=== PATIENT | male | born 1965 | race American Indian/Alaskan Native ===

== ENCOUNTER 2017-06-18 18:57 | Emergency (ER) | payer OTHER ==
[2017-06-18 18:57] VITALS: BMI 31.4
[2017-06-18 19:05] VITALS: BP 152/97; PULSE 86; TEMP 98
[2017-06-18] MEDS ORDERED: Lidocaine 5% Patch TD STA (19:17)
--- NOTE | 2017-06-18 19:21 | ED PDOC ---
Arrival/HPI - General Chief Complaint: Upper Extremity Problem/Injury Time Seen by Provider: 06/18/17 19:00 Historian: Patient - History of Present Illness Narrative History of Present Illness (Text): 06/18/17 19:18 52 y/o male, pmh including chronic rt. shoulder and neck pain, nkda, c/o rt. shoulder and neck pain started again earlier this week with no fall or trauma. Pt. stated that he gets this vicki pain around this time of the year, aggravated by rt. shoulder movement and rt. elbow extension against resistance, unable to see the orthopedic this week, no headache or night sweat, no chest pain or shortness of breath, no numbness or tingling. Pt. stated that he always has rt. elbow pain concurrently with the rt. shoulder pain, no chest pain or shortness of breath, no night sweat, no rash, no other medical or psychological complaints. Past Medical History - Provider Review Nursing Documentation Reviewed: Yes - Cardiac Hx Cardiac Disorders: Yes Hx Atrial Fibrillation: Yes (12 years ago) Hx Hypertension: Yes - Pulmonary Hx Respiratory Disorders: No - Neurological Hx Neurological Disorder: No - HEENT Hx HEENT Disorder: No - Renal Hx Renal Disorder: No - Endocrine/Metabolic Hx Endocrine Disorders: Yes Hx Diabetes Mellitus Type 2: Yes - Hematological/Oncological Hx Blood Disorders: No - Integumentary Hx Dermatological Disorder: No - Musculoskeletal/Rheumatological Hx Musculoskeletal Disorders: No Hx Falls: No - Gastrointestinal Hx Gastrointestinal Disorders: Yes Hx Pancreatitis: Yes - Genitourinary/Gynecological Hx Genitourinary Disorders: No - Psychiatric Hx Psychophysiologic Disorder: No Hx Depression: No Hx Emotional Abuse: No Hx Physical Abuse: No Hx Substance Use: No - Surgical History Other/Comment: ENDOSCOPY - Suicidal Assessment Feels Threatened In Home Enviroment: No Family/Social History - Physician Review Nursing Documentation Reviewed: Yes Family/Social History: Unknown Family HX Smoking Status: Current Some Days Smoker Hx Alcohol Use: Yes (occasional) Frequency of alcohol use: Socially Hx Substance Use: No Hx Substance Use Treatment: No Allergies/Home Meds Allergies/Adverse Reactions: Allergies No Known Allergies Allergy (Verified 03/10/12 01:56) Home Medications: Home Meds Medication Instructions Recorded Confirmed amLODIPine [Norvasc] 5 mg PO DAILY 09/13/16 06/18/17 Glimepiride [amaRYL] 2 mg PO DAILY 06/18/17 06/18/17 Review of Systems - Review of Systems Constitutional: absent: Fatigue, Fevers Eyes: absent: Vision Changes ENT: absent: Hearing Changes Respiratory: absent: SOB, Cough Cardiovascular: absent: Chest Pain Gastrointestinal: absent: Abdominal Pain, Nausea, Vomiting Musculoskeletal: Arthralgias, Myalgias Skin: absent: Rash, Pruritis, Skin Lesions Neurological: absent: Headache, Dizziness, Focal Weakness Psychiatric: absent: Anxiety, Depression, Suicidal Ideation Physical Exam Vital Signs Reviewed: Yes Vital Signs Temp Pulse Resp BP Pulse Ox 06/18/17 19:07 98.0 F 86 18 152/97 H 98 06/18/17 19:01 98.0 F 86 16 152/97 H 98 Temperature: Afebrile Blood Pressure: Hypertensive Pulse: Regular Respiratory Rate: Normal Appearance: Positive for: Well-Appearing, Non-Toxic, Comfortable Pain Distress: Moderate Mental Status: Positive for: Alert and Oriented X 3 - Systems Exam Head: Present: Atraumatic, Normocephalic Pupils: Present: PERRL Extroacular Muscles: Present: EOMI Conjunctiva: Present: Normal Mouth: Present: Moist Mucous Membranes Neck: Present: Normal Range of Motion, Paraspinal Tenderness (mild rt. paraspinal and rt. trapezius muscle tenderness with mild spasm. ). No: Meningeal Signs, MIDLINE TENDERNESS Respiratory/Chest: Present: Clear to Auscultation, Good Air Exchange. No: Respiratory Distress, Accessory Muscle Use, Wheezes, Decreased Breath Sounds, Rales, Retracting, Rhonchi Cardiovascular: Present: Regular Rate and Rhythm, Normal S1, S2. No: Murmurs Abdomen: Present: Normal Bowel Sounds. No: Tenderness, Distention, Peritoneal Signs, Rebound, Guarding Back: Present: Normal Inspection. No: CVA Tenderness, Midline Tenderness, Paraspinal Tenderness, Pain with Leg Raise, Decubitus Ulcer Upper Extremity: Present: Normal Inspection, Other (Rt. shoulder and UE: +ttp on the rt. lateral epicondyle with pain upon rt. elbow extension against resistance, +ttp on the rt. trapezius/supraspinal muscle region, FROM without limitation, sensation intact, motor 5/5, +radial pulse, capillary refill< 2 seconds, neurovascular intact. ). No: Cyanosis, Edema Lower Extremity: Present: Normal Inspection. No: Edema Neurological: Present: GCS=15, CN II-XII Intact, Speech Normal Skin: Present: Warm, Dry, Normal Color. No: Rashes Psychiatric: Present: Alert, Oriented x 3, Normal Insight, Normal Concentration Medical Decision Making ED Course and Treatment: 06/18/17 19:28 -There is no emergent indication of radiology studies indicated at this time. However, I advised the patient to follow up with his own orthopedic and pmd within 2 days for MRI of the rt. shoulder and cervical spine. -Pt. is driving home so I will give him toradol IM and lidoderm patch. -Discharge home with lidoderm patch, naproxen, flexeril, heat compression, follow up with your own pmd and orthopedic plus physical therapist within 2 days along with MRI of the rt. shoulder/cervical spine, return to the ER for any new or worsening signs or symptoms. - PA / TIME SIGNAL WIRER / Resident Statement / has reviewed & agrees with the documentation as recorded. Disposition/Present on Arrival - Present on Arrival Any Indicators Present on Arrival: No History of DVT/PE: No History of Uncontrolled Diabetes: Yes Urinary Catheter: No History of Decub. Ulcer: No History Surgical Site Infection Following: None - Disposition Have Diagnosis and Disposition been Completed?: Yes Diagnosis: Tennis elbow, Trapezius muscle strain, Shoulder pain Disposition: HOME/ ROUTINE Disposition Time: 19:30 Patient Plan: Discharge Condition: GOOD Additional Instructions: -Discharge home with lidoderm patch, naproxen, flexeril, heat compression, follow up with your own pmd and orthopedic plus physical therapist within 2 days along with MRI of the rt. shoulder/cervical spine, return to the ER for any new or worsening signs or symptoms. Prescriptions: Cyclobenzaprine [Cyclobenzaprine HCl] 10 mg PO TID PRN #21 tab PRN Reason: Other Lidocaine 5% [Lidoderm] 1 patch TP DAILY PRN #14 patch PRN Reason: Other Naproxen 500 mg PO BID PRN #24 tab PRN Reason: Other Referrals: Jorge Arriaga III, MD [Medical Doctor] - Follow up with primary [facility] [Outside] - Follow up with primary Forms: WORK NOTE
[2017-06-18 20:02] VITALS: RESP 19; O2SAT 100
== END 2017-06-18 20:02 | disposition home or self-care (01) ==
LOC: ED 18:57
DX: M77.11 Lateral epicondylitis, right elbow (principal); S46.911A Strain of unspecified muscle, fascia and tendon at shoulder and upper arm level, right arm, initial encounter; X58.XXXA Exposure to other specified factors, initial encounter; Y92.9 Unspecified place or not applicable
CPT/HCPCS: 96372; 99283; J1885

== ENCOUNTER 2018-10-17 20:53 | Emergency (ER) | payer OTHER ==
[2018-10-17 20:54] VITALS: BMI 31.4
[2018-10-17 21:43] VITALS: RESP 18
[2018-10-17] MEDS ORDERED: TDAP Vaccine 0.5 mL Syr IM ONE (22:38)
[2018-10-18 00:25] VITALS: TEMP 97.9
[2018-10-18 00:30] VITALS: O2SAT 96
--- NOTE | 2018-10-18 00:34 | ED PDOC ---
Arrival/HPI - General Chief Complaint: Trauma Time Seen by Provider: 10/17/18 21:44 Historian: Patient, Family - History of Present Illness Narrative History of Present Illness (Text): 10/18/18 00:28 53-year-old male presents today with head injury status post fall. Patient admits to drinking alcohol today and states that he tripped going up the stairs sustaining an injury to the nose forehead and scalp. Patient denies loss of consciousness. He denies headaches dizziness or weakness. Patient denies chest pain or shortness of breath. Patient denies any pain in the extremities. Patient denies abdominal pain. No nausea vomiting diarrhea or constipation. Patient is unsure of his last tetanus shot. No other complaints Time/Duration: Prior to Arrival Past Medical History - Provider Review Nursing Documentation Reviewed: Yes - Travel History Have you recently traveled outside [place] w/in the past 3 mons?: No - Infectious Disease Hx of Infectious Diseases: None - Tetanus Immunization Tetanus Immunization: Unknown - Cardiac Hx Cardiac Disorders: Yes Hx Atrial Fibrillation: Yes (12 years ago) Hx Hypertension: Yes - Pulmonary Hx Respiratory Disorders: No - Neurological Hx Neurological Disorder: No - HEENT Hx HEENT Disorder: No - Renal Hx Renal Disorder: No - Endocrine/Metabolic Hx Endocrine Disorders: Yes Hx Diabetes Mellitus Type 2: Yes - Hematological/Oncological Hx Blood Disorders: No - Integumentary Hx Dermatological Disorder: No - Musculoskeletal/Rheumatological Hx Musculoskeletal Disorders: No Hx Falls: No - Gastrointestinal Hx Gastrointestinal Disorders: Yes Hx Pancreatitis: Yes - Genitourinary/Gynecological Hx Genitourinary Disorders: No - Psychiatric Hx Psychophysiologic Disorder: No Hx Depression: No Hx Emotional Abuse: No Hx Physical Abuse: No Hx Substance Use: No - Surgical History Other/Comment: ENDOSCOPY - Anesthesia Hx Anesthesia: No - Suicidal Assessment Feels Threatened In Home Enviroment: No Family/Social History - Physician Review Nursing Documentation Reviewed: Yes Family/Social History: Unknown Family HX Smoking Status: Current Some Days Smoker Hx Alcohol Use: Yes (occasional) Hx Substance Use: No Hx Substance Use Treatment: No Allergies/Home Meds Allergies/Adverse Reactions: Allergies No Known Allergies Allergy (Verified 10/17/18 21:43) Home Medications: Home Meds Medication Instructions Recorded Confirmed amLODIPine [Norvasc] 5 mg PO DAILY 09/13/16 06/18/17 Glimepiride [amaRYL] 2 mg PO DAILY 06/18/17 06/18/17 Review of Systems - Review of Systems Constitutional: absent: Fatigue, Fevers ENT: absent: Sore Throat, Sinus Congestion Respiratory: absent: SOB, Cough Cardiovascular: absent: Chest Pain, Palpitations Gastrointestinal: absent: Abdominal Pain, Constipation, Diarrhea, Nausea, Vomiting Genitourinary Male: absent: Dysuria, Frequency, Hematuria Musculoskeletal: absent: Arthralgias, Back Pain, Neck Pain Skin: Other (Abrasion to nose, forehead, scalp). absent: Pruritis Neurological: absent: Headache, Dizziness Psychiatric: absent: Anxiety, Depression, Suicidal Ideation Physical Exam Vital Signs Reviewed: Yes Vital Signs Temp Pulse Resp BP Pulse Ox 10/18/18 00:25 97.9 F 10/17/18 21:42 84 18 105/50 L 97 Temperature: Afebrile Blood Pressure: Normal Pulse: Regular Respiratory Rate: Normal Appearance: Positive for: Well-Appearing, Non-Toxic, Comfortable Pain Distress: None Mental Status: Positive for: Alert and Oriented X 3 - Systems Exam Head: Present: Abrasion (Abrasion noted to the frontal scalp. Small abrasion noted to the right side of the forehead no step-offs or crepitus..) Pupils: Present: PERRL Extroacular Muscles: Present: EOMI Conjunctiva: Present: Normal Ears: Present: Normal, NORMAL TM Mouth: Present: Moist Mucous Membranes, Normal Tounge, Normal Teeth Pharnyx: Present: Normal. No: ERYTHEMA, EXUDATE Nose (External): Present: Abrasion (Deep abrasion noted to the bridge of the nose) Nose (Internal): Present: Normal Inspection, No Active Bleeding. No: Septal Hematoma, Epistaxis Neck: Present: Normal Range of Motion, Trachea Midline. No: MIDLINE TENDERNESS, Paraspinal Tenderness Respiratory/Chest: Present: Clear to Auscultation, Good Air Exchange, Other (No edema no erythema no ecchymosis). No: Respiratory Distress, Accessory Muscle Use, Tender to Palpation Cardiovascular: Present: Regular Rate and Rhythm Abdomen: Present: Other (No ecchymosis). No: Tenderness, Distention, Rebound, Guarding Back: Present: Normal Inspection, Other (No ecchymosis). No: Midline Tenderness, Paraspinal Tenderness Upper Extremity: Present: Normal Inspection, Normal ROM Lower Extremity: Present: Normal Inspection, Normal ROM Neurological: Present: GCS=15, Speech Normal, Motor Func Grossly Intact, Normal Sensory Function Skin: Present: Warm, Dry Psychiatric: Present: Alert, Oriented x 3 Medical Decision Making ED Course and Treatment: 10/18/18 00:31 Head injury and multiple facial abrasions status post mechanical fall. pt admits to drinking alcohol today. Wounds were cleaned and irrigated well with normal saline using high pressure irrigation. Bacitracin and dressing applied to the wounds. Tetanus updated CT head: FINDINGS: BRAIN No acute intraparenchymal hemorrhage. No mass lesion. No CT evidence for acute territorial infarct. No midline shift or extra-axial collections. VENTRICLES: No hydrocephalus. ORBITS: The orbits are unremarkable. SINUSES AND MASTOIDS: The paranasal sinuses and mastoid air cells are clear. BONES: No fracture. SOFT TISSUES: Unremarkable. IMPRESSION: No acute intracranial abnormality. Electronically signed on Oct 17, 2018 11:33:30 PM EDT by: Beka Falcon M.D., ARNULFO Certified By ABR & CBCCT Fellowship Trained MRI and CT Specialist CT maxillofacial: FINDINGS: BONES: No acute fracture or aggressive appearing osseous lesion. The mandible is intact. There is evidence of degenerative disc disease at C3-4, C4-5, C5-6. Mild degenerative arthritis is seen within the atlanto-dens interval. SOFT TISSUES: The soft tissues are unremarkable. SINUSES: Mucoperiosteal thickening seen in the posterior inferior right maxillary sinus compatible with sinusitis. The remaining sinuses are clear. ORBITS: The orbits are normal. No retrobulbar hematoma or mass. IMPRESSION: 1. Minimal inferior right maxillary sinusitis. 2. Evidence of degenerative disc disease at C3-4, C4-5, C5-6. 3. Otherwise, unremarkable maxillofacial CT. Electronically signed on Oct 17, 2018 11:33:39 PM EDT by: Beka Falcon M.D., ARNULFO Certified By ABR & CBCCT Fellowship Trained MRI and CT Specialist CT cervical spine: FINDINGS: ALIGNMENT: Bony alignment is anatomic. DEGENERATIVE CHANGES: There is evidence of moderate to severe degenerative disc disease at C3-4, C4-5, C5-6. Degenerative arthritis is seen within the atlanto-dens interval. SOFT TISSUES: The prevertebral soft tissues are within normal limits. BONES: No acute fracture or aggressive appearing osseous lesion. IMPRESSION: 1. There is evidence of moderate to severe degenerative disc disease at C3-4, C4-5, C5-6. 2. Degenerative arthritis is seen within the atlanto-dens interval. 3. No fracture. Electronically signed on Oct 17, 2018 11:48:33 PM EDT by: Beka Falcon M.D., MBA Certified By ABR & CBCCT Fellowship Trained MRI and CT Specialist Patient reassessment: Patient is nontoxic well-appearing in no distress with stable vital signs.abdomen remains soft non tender, non distended. back remains non tender. pt is alert and oriented. all results discussed with patient and his brother in law in depth; advised keeping wounds clean and dry and f/u with PMD. advised immediate return if symptoms worsen,persist or if new symptoms develop. Patient was home into the care of his [id number]. Patient verbalizes understanding of discharge instructions and need for immediate followup. All aspects of this case were discussed the attending of record. impression: head injury, abrasion, nose, abrasion forehead, abrasion scalp keep the wounds clean and dry apply bacitracin twice daily increase fluids follow up with the primary care physician within the next 2 days follow up with the plastic surgeon return immediately if signs of infection develop; high fevers, increasing pain, redness, swelling or purulent discharge return if any other concerning symptoms develop Reassessment Condition: Re-examined, Improved - RAD Interpretation Radiology Orders: 10/17/18 22:37 CERVICAL SPINE W/O CONTRAST [CT] Stat HEAD W/O CONTRAST [CT] Stat MAXILLOFACIAL W/O CONTRAST [CT] Stat - Medication Orders Current Medication Orders: Discontinued Medications Tetanus/Reduced Diphtheria/Acell Pertussis (Boostrix Vaccine Inj) 0.5 ml IM .ONCE ONE Stop: 10/17/18 22:39 Last Admin: 10/17/18 23:12 Dose: 0.5 ml Immunization Registry Document 10/17/18 23:12 IT (Rec: 10/17/18 23:13 IT [id number]) [facility]-Date provided 10/17/18Oct Immunization Data Document 10/17/18 23:12 IT (Rec: 10/17/18 23:13 IT [id number]) Immunization Data Vaccine Information Sheet Given Yes Disposition/Present on Arrival - Present on Arrival Any Indicators Present on Arrival: Yes History of DVT/PE: No History of Uncontrolled Diabetes: Yes Urinary Catheter: No History of Decub. Ulcer: No History Surgical Site Infection Following: None - Disposition Have Diagnosis and Disposition been Completed?: Yes Diagnosis: Head injury, Abrasion, nose w/o infection, Abrasion of forehead, Abrasion, scalp w/o infection Disposition: HOME/ ROUTINE Disposition Time: 00:30 Patient Plan: Discharge Patient Problems: Current Active Problems Problem Status Onset Abrasion of forehead Acute Abrasion, nose w/o infection Acute Abrasion, scalp w/o infection Acute Head injury Acute Condition: GOOD Discharge Instructions (ExitCare): Closed Head Injury (DC), Skin Abrasions (DC) Additional Instructions: keep the wounds clean and dry apply bacitracin twice daily increase fluids follow up with the primary care physician within the next 2 days follow up with the plastic surgeon return immediately if signs of infection develop; high fevers, increasing pain, redness, swelling or purulent discharge return if any other concerning symptoms develop Prescriptions: Bacitracin OINT 1 applic TP BID #1 tube Referrals: Maia Baez MD [Medical Doctor] - Follow up with primary [facility] [Outside] - Follow up with primary Maria Esther Arias MD [Staff Provider] - Follow up with primary Forms: [facility] (German), WORK NOTE
[2018-10-18] MEDS ORDERED: Bacitracin 500 Units/gm Oint Foilpak UD ONE (00:48)
[2018-10-18 00:52] VITALS: BP 111/69
[2018-10-18 01:05] VITALS: PULSE 85
--- NOTE | 2018-10-18 09:14 | CT ---
Date of service: 10/17/2018 PROCEDURE: CT HEAD WITHOUT CONTRAST. HISTORY: Headache COMPARISON: Comparison made with concurrent CT scan of the brain maxillofacial skeleton. TECHNIQUE: Axial computed tomography images were obtained through the head/brain without intravenous contrast. Radiation dose: Total exam DLP = 910.58 mGy-cm. This CT exam was performed using one or more of the following dose reduction techniques: Automated exposure control, adjustment of the mA and/or kV according to patient size, and/or use of iterative reconstruction technique. FINDINGS: HEMORRHAGE: No intracranial hemorrhage. BRAIN: Suspect minimal chronic periventricular white matter ischemic changes. Mild generalized volume loss. VENTRICLES: Unremarkable. No hydrocephalus. CALVARIUM: There are no acute calvarial fractures.. Left superior frontal scalp scar. PARANASAL SINUSES: Minor mucosal thickening seen within a few ethmoid air cells.. There is also polypoid like mucosal thickening a maxillary antrum. MASTOID AIR CELLS: Unremarkable as visualized. No inflammatory changes. OTHER FINDINGS: Apparent bilateral exophthalmos. Correlation with thyroid function tests and ophthalmologic consultation. IMPRESSION: No acute intracranial hemorrhage. Suspect minimal chronic periventricular white matter ischemic changes. Mild generalized volume loss.. Findings consistent with bilateral exophthalmos; recommend correlation with thyroid function tests and ophthalmologic consultation.
--- NOTE | 2018-10-18 09:24 | CT ---
Date of service: 10/17/2018 PROCEDURE: CT MAXILLOFACIAL BONES WITHOUT CONTRAST HISTORY: Fall with facial injury COMPARISON: Comparison made with concurrent CT scan brain. TECHNIQUE: Contiguous axial CT images of the maxillofacial bones were obtained. Coronal and sagittal reformats were generated. Radiation dose: Total exam DLP = 793.07 mGy-cm. This CT exam was performed using one or more of the following dose reduction techniques: Automated exposure control, adjustment of the mA and/or kV according to patient size, and/or use of iterative reconstruction technique. FINDINGS: NASAL BONES: Unremarkable. ORBITS: Changes of bilateral exophthalmos. Recommend follow-up thyroid function tests and ophthalmologic consultation. PARANASAL SINUSES/ MASTOIDS: There is mild mucosal thickening within both maxillary antra as well as and several ethmoid air cells. MAXILLA: Unremarkable. MANDIBLE/ TEMPOROMANDIBULAR JOINTS: Unremarkable. SKULL BASE: Unremarkable. TEMPORAL BONES: Middle ears and mastoid grossly unremarkable. OTHER FINDINGS: There appears to be some mild right frontal scalp swelling. Mild multilevel degenerative spondylosis of the upper cervical spine. IMPRESSION: No acute maxillofacial skeletal fractures. Mild right frontal scalp swelling.
--- NOTE | 2018-10-18 10:17 | CT ---
Date of service: 10/17/2018 PROCEDURE: CT Cervical Spine without contrast HISTORY: Fall COMPARISON: None available. TECHNIQUE: Axial computed tomography images were obtained of the cervical spine without the use of intravenous contrast. Coronal and sagittal reformatted images were created and reviewed. Radiation dose: Total exam DLP = 584.38 mGy-cm. This CT exam was performed using one or more of the following dose reduction techniques: Automated exposure control, adjustment of the mA and/or kV according to patient size, and/or use of iterative reconstruction technique. FINDINGS: VERTEBRAE: No acute compression fractures no retropulsed fragments.. Minor chronic anterior stature loss of the C5 segment felt to be degenerative in origin. Vertebral bodies otherwise exhibit normal all stature. There is mild kyphotic angulation deformity centered at the C4-C5 level with straightening of the normal cervical lordosis above and below this level. DISCS/SPINAL CANAL/NEURAL FORAMINA: At the C3-C4 level, there is disc space narrowing more so along the anterior disc margin with a asymmetric broad-based disc bulge-protrusion ridge complex larger on the left than right and contiguous with hypertrophic uncovertebral joints.. There is resultant mild moderate central canal stenosis and cord compression. Facets also hypertrophic with bilateral foraminal stenosis At the C4-C5 level, there is also disc space narrowing more so along the anterior disc margin. Small asymmetric disc ridge complex which is associate with some calcification along the left parasagittal posterior annulus present. Changes are contiguous with hypertrophic uncovertebral joints. There is resultant moderate central canal stenosis and cord compression. Exit foramina are stenotic bilaterally. At the C5 C6 level, there is asymmetric disc ridge complex contiguous with hypertrophic uncovertebral joints right greater than left.. There is resultant moderate to fairly significant canal stenosis and cord compression. The exit foramina are stenotic bilaterally right greater than left. PARASPINAL SOFT TISSUES: Unremarkable. OTHER FINDINGS: Lung apices clear. Note made of a small approximately 6.9 mm eggshell like calcification left lobe thyroid gland. Recommend follow-up thyroid ultrasound. IMPRESSION: No acute fractures. Multilevel degenerative spondylosis with varying degrees of canal stenosis cord compression and bilateral foraminal stenosis as described. Small eggshell like calcification left lobe thyroid gland for which thyroid ultrasound follow-up recommended.
== END 2018-10-18 01:05 | disposition home or self-care (01) ==
LOC: ED 20:53
DX: S00.31XA Abrasion of nose, initial encounter (principal); S00.81XA Abrasion of other part of head, initial encounter; S00.01XA Abrasion of scalp, initial encounter; W10.9XXA Fall (on) (from) unspecified stairs and steps, initial encounter; Z23 Encounter for immunization